=== PATIENT | female | born 1980 | race Caucasian/White ===

== ENCOUNTER → 2018-12-28 | Day surgery (SDC) | payer BC ==
--- OUTSIDE RECORDS SUMMARY | 2018-12-28 09:39 | XMS REPORT ---
:1980 Author Organization [employer] Care Team Providers Name Role Phone Krishnan, Na Provider Role Unavailable Allergies, Adverse Reactions, Alerts Substance Reaction Event Type N.K.D.A. 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 Problem Carpal tunnel syndrome on both sides G56.03 Active Problem Anxiety F41.9 Active Problem Depression F32.9 Active Problem Allergic rhinitis J30.9 Active Problem History of depression Z86.59 Active Problem History of anxiety Z86.59 Active Problem Seasonal allergies J30.2 Active Problem Sinus problem J34.9 Active Assessment History of anxiety Z86.59 Active Assessment History of depression Z86.59 Active Assessment Seasonal allergies J30.2 Active Assessment Contact dermatitis due to poison eliu L23.7 Active Assessment Carpal tunnel syndrome on both sides G56.03 Active Medications Medication Code Code Instructions Start End Status Dosage System Date Date Mupirocin [facility] [place] 29602913147 2 % Externally May 08, Active 1 application two times a day 2018 to affected area Medrol ND [id number] 4 MG Orally May 08, Active as directed daily 2018 with food Results No Known Results Summary Purpose [employer]ClinicalWorks Submission
--- OUTSIDE RECORDS SUMMARY | 2018-12-28 09:39 | XMS REPORT ---
:1980 Author Organization [employer] Care Team Providers Name Role Phone Krishnan, Na Provider Role Unavailable Allergies No Known Allergies Problems Problem Type Condition Code Onset Dates Condition Status Problem Carpal tunnel syndrome on both sides G56.03 Active Problem Anxiety F41.9 Active Problem Depression F32.9 Active Problem Allergic rhinitis J30.9 Active Problem History of depression Z86.59 Active Problem History of anxiety Z86.59 Active Problem Seasonal allergies J30.2 Active Problem Sinus problem J34.9 Active Medications No Known Medications Results No Known Results Summary Purpose [employer]ClinicalWorks Submission
--- OUTSIDE RECORDS SUMMARY | 2018-12-28 09:39 | XMS REPORT ---
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 Problem Carpal tunnel syndrome on both sides G56.03 Active Problem Anxiety F41.9 Active Problem Depression F32.9 Active Problem Allergic rhinitis J30.9 Active Problem History of depression Z86.59 Active Problem History of anxiety Z86.59 Active Problem Seasonal allergies J30.2 Active Problem Sinus problem J34.9 Active Medications Medication Code Code Instructions Start End Status Dosage System Date Date Mupirocin [facility] 12983844772 2 % Externally May 08, Active 1 application two times a day 2018 to affected area Medrol [facility] [id number] 4 MG Orally May 08, Active as directed daily 2018 with food Results No Known Results Immunizations Vaccine Administration Date TB PPD Oct 23, 2018 Summary Purpose eClinicalWorks Submission
--- NOTE | 2018-12-28 11:44 | RAD REPORT ---
EXAM DESCRIPTION: US - Fine Needle Asp Breast Guide - 12/28/2018 11:19 am CLINICAL HISTORY: N63.12, N63.22 COMPARISON: Follow Up Breast Axilla Comp dated 09/06/2018 FINDINGS: Preoperative diagnosis: Right breast cyst. Post operative diagnosis: Same. Conscious Sedation: None Fluoroscopy time: None Contrast used: None Estimated blood loss: Minimal The right breast was prepped and draped in the usual sterile fashion. 1% lidocaine was infiltrated in to the subcutaneous tissues for local anesthesia. Real time ultrasound scanning of the periareolar ri ght breast demonstrated 2.5 cm hypoechoic cyst. Under ultrasound guidance, using a FNA needle, the en tire cyst was aspirated and seen to completely collapse. 6 cc of yellowish fluid was aspirated. There were no complications. IMPRESSION: Successful ultrasound-guided right breast cyst aspiration.
--- NOTE | 2018-12-28 11:47 | RAD REPORT ---
EXAM DESCRIPTION: US - Fine Needle Asp Breast Guide - 12/28/2018 11:19 am CLINICAL HISTORY: N63.12, N63.22 COMPARISON: Fine Needle Asp Breast Guide dated 12/28/2018 FINDINGS: Preoperative diagnosis: Left breast cyst. Post operative diagnosis: Same. Conscious Sedation: None Fluoroscopy time: None Contrast used: None Estimated blood loss: Minimal The left breast was prepped and draped in the usual sterile fashion. 1% lidocaine was infiltrated int o the subcutaneous tissues for local anesthesia. Real time ultrasound scanning of the left breast dem onstrated 2.4 cm hypoechoic cyst 12 o'clock position. Under ultrasound guidance, using an FNA needle, the cyst was completely aspirated yielding 4 cc yellowish fluid. There were no complications. IMPRESSION: Successful ultrasound-guided left breast cyst aspiration.
== END ==
LOC: FNA 09:20
PROVIDERS: ATTEND Surgery
DX: N60.02 Solitary cyst of left breast (principal); N60.01 Solitary cyst of right breast
CPT/HCPCS: 10005; 76942

== ENCOUNTER 2022-08-12 06:27 | Day surgery (SDC) | payer BC ==
[2022-08-11 10:02] LABS: Absolute Lymphocytes (CBC) 2.1 K/uL (0.7-4.9); Lymphocytes % 36.3 % (15.3-44.8); MCV 83.2 fL (80-100); MPV 9.2 fL (7.6-11.3); RBC Red Blood Cell Count 4.93 M/uL (3.86-4.86)
[2022-08-11 10:13] LABS: Albumin 3.8 g/dL (3.4-5.0); Bilirubin Direct 0.3 mg/dL (0-0.2); Bilirubin Total 1.3 mg/dL (0.2-1.0); Potassium 3.9 mmol/L (3.5-5.1); Protein, Total 7.6 g/dL (6.4-8.2)
[2022-08-12] MEDS ORDERED: Ringers Lactate 1,000 ML IV ONE (06:44)
[2022-08-12] MEDS ORDERED: CELECOXIB 100 MG CAPSULE ONE (07:10)
[2022-08-12] MEDS ORDERED: ACETAMINOPHEN 500 MG TAB ONE (07:11)
[2022-08-12] MEDS ORDERED: MIDAZOLAM HCL 2 MG/2 ML INJ ONE (07:14)
[2022-08-12] MEDS ORDERED: propofoL 200 MG/20 ML VIAL IV ONE (07:14)
[2022-08-12] MEDS ORDERED: ROCURONIUM 50 MG/5 ML VIAL IV ONE (07:15)
[2022-08-12] MEDS ORDERED: FENTANYL CITR 250 MCG/5 ML ONE (07:15)
[2022-08-12] MEDS ORDERED: LIDOCAINE 2% MPF 5 ML VIAL ONE (07:21)
[2022-08-12] MEDS ORDERED: GLYCOPYRROLATE 0.2 MG/ML SYR ONE (07:21)
[2022-08-12] MEDS ORDERED: NEOSTIGMINE 1 MG/ML -10 ML VIAL ONE (07:21)
[2022-08-12] MEDS ORDERED: ONDANSETRON 4 MG/2 ML VIAL ONE ×2 (07:21→08:56)
[2022-08-12] MEDS: CEFOXITIN SODIUM 1 GM/VIAL ONE ×2 (07:23→07:35)
[2022-08-12] MEDS ORDERED: dexAMETHasone 10 MG/ML VIAL ONE (08:03)
[2022-08-12] MEDS ORDERED: EPHEDRINE SULF 50 MG/ML VIAL ONE (08:06)
[2022-08-12] MEDS ORDERED: Phenylephrine HCl 10 MG/ML 1 ML VIAL ONE (08:08)
[2022-08-12] MEDS ORDERED: Mastisol Adhesive Liq ONE (08:37)
--- NOTE | 2022-08-12 08:38 | P.OP ---
Date of Service: 08/12/22 Preop diagnosis: Chronic cholecystitis and cholelithiasis Postop diagnosis: Same Procedure performed: Laparoscopic cholecystectomy Surgeon: Alvarez Shahid MD Park Maintainer: Malina GUILLORY Estimated blood loss: Minimal Specimen: Gallbladder Findings: As above Anesthesia: General Complications: None Drains: None Fluids and blood products: Not applicable Disposition: Recovery room Operative note: Patient brought to the OR and placed in the supine position. General anesthesia begun. Patient prepped and draped in the usual sterile fashion. Marcaine 0.5% infiltrated locally. 15 blade used to make a 1 cm infraumbilical midline incision. Subcutaneous tissue divided. Fascia identified and divided. #1 Vicryl stay suture placed. Peritoneal cavity entered with sharp and blunt dissection. 12 mm trocar placed into the peritoneal cavity under direct vision. Pneumoperitoneum established. Then 3 5 mm trochars placed under direct vision. 1 trocar placed in the epigastric region just to the right of midline. 2 other trochars placed in the right subcostal region. Laparoscopy revealed chronic inflammation of the gallbladder. Fundus retracted superiorly and infundibulum retracted inferolaterally. Cystic duct and cystic artery clearly identified with blunt dissection. Clips placed and both structures divided. Cautery used to remove the gallbladder from the liver bed. Bleeding on the liver bed controlled with cautery. Gallbladder retrieved through the umbilicus via Endo Catch bag. Right upper quadrant ir rigated. No evidence of bleeding or bile leakage appreciated. Then, all trochars removed under direct vision. Stay sutures tied to each other to reapproximate the fascial defect. Subcutaneous wounds irrigated and bleeding controlled with cautery. Then 3-0 chromic used to reapproximate subcutaneous tissue and close skin. Sterile dressing applied. Patient awakened and taken to recovery room in good general condition. CC: Dr. Sanchez's office
[2022-08-12] MEDS ORDERED: HYDROCODONE/APAP 7.5/325 MG TAB PO PRN (08:40)
[2022-08-12 08:44] VITALS: O2SAT 100
[2022-08-12] MEDS ORDERED: KETOROLAC 30 MG/ML INJ ONE (08:57)
[2022-08-12] MEDS: HYDROMORPHONE HCL 1 MG/ML INJ ONE ×2 (08:58→09:03)
[2022-08-12] MEDS ORDERED: HYDROCODONE/APAP 7.5/325 MG TAB ONE (09:34)
[2022-08-12 09:59] VITALS: BP 120/73; TEMP 97
== END 2022-08-12 10:15 | disposition home or self-care (01) ==
LOC: OR 06:27
PROVIDERS: ATTEND Surgery
PROC: 0FT44ZZ Resection of Gallbladder, Percutaneous Endoscopic Approach (ICD-10-PCS; principal; 2022-08-12 07:30)
DX: K80.10 Calculus of gallbladder with chronic cholecystitis without obstruction (principal)
CPT/HCPCS: 85025; 80048; 36415; 82150; 84703; 80076; 88304; 47562; J2704; J2710; J2370; J2001; J2250; J3010; J1100; J1170; J7120; J0694; J2405 ×2

== ENCOUNTER → 2023-08-15 | Day surgery (SDC) | payer BC ==
--- NOTE | 2023-08-15 10:51 | RAD REPORT ---
EXAM DESCRIPTION: Ultrasound-guided right breast needle aspiration CLINICAL HISTORY: N63.10 COMPARISON: Follow Up Breast Axilla Ltd dated 08/01/2023; 3D DIAG PETER BILAT W/CAD dated 08/01/2023 FINDINGS: Informed consent was obtained following discussion of the relevant risks and benefits with the patient. Time-out was performed. The patient's right breast was prepped and draped in the usual sterile fashion. 1% lidocaine was used for local anesthetic purposes. Utilizing aseptic technique and ultrasound guidance, an 18 gauge aspiration needle was used to access the thin-walled lobulated right upper outer quadrant cyst today measuring 4.3 x 3.7 cm in greatest a xial dimensions. Aspiration of turbid straw-colored fluid was obtained, and sent to pathology via sli eduardo as well as in a storage container, for further lab analysis as ordered. A total of approximately 25 mL were aspirated. A complete degree of aspiration was obtained. No residual solid components or s uspicious wall abnormalities to warrant a core biopsy. Patient tolerated procedure well. She was discharged to the post procedure monitoring Unit. IMPRESSION: Successful ultrasound guided right breast needle aspiration.
== END ==
LOC: DS 08:00
PROVIDERS: ATTEND Surgery
DX: N63.10 Unspecified lump in the right breast, unspecified quadrant (principal)
CPT/HCPCS: 19083; 88161